=== PATIENT | female | born 1940 | race Two or more races ===

== ENCOUNTER 2019-01-24 16:32 | Emergency (ER) | payer OTHER ==
[~2019-01-24] VITALS: Ht 152.4 cm; Wt 40.4 kg
[~2019-01-24 16:32] MED LIST: PLAVIX75 MG; ZETIA10 MG
== END 2019-01-24 20:18 | disposition home or self-care (01) ==
LOC: ER 16:32
DX: K62.5 Hemorrhage of anus and rectum (principal)

== ENCOUNTER 2022-02-19 11:08 | Emergency (ER) | payer OTHER ==
[~2022-02-19] VITALS: Ht 149.9 cm; Wt 39.9 kg
[2022-02-19] MEDS ORDERED: CRESTOR5 MG PO (11:23)
[2022-02-19] MEDS ORDERED: KETO10TA2 PO (12:12)
== END 2022-02-19 12:23 | disposition home or self-care (01) ==
LOC: ER 11:08
DX: S30.0XXA Contusion of lower back and pelvis, initial encounter (principal); W18.30XA Fall on same level, unspecified, initial encounter; Y93.89 Activity, other specified; Y92.22 Religious institution as the place of occurrence of the external cause; Y99.9 Unspecified external cause status

== ENCOUNTER 2024-02-28 15:56 | Emergency (ER) | payer OTHER ==
[~2024-02-28] VITALS: Ht 160 cm; Wt 37.6 kg
[~2024-02-28 15:56] MED LIST changes: +CRESTOR5 MG PO; +KETO10TA2 PO
[2024-02-28] MEDS ORDERED: COZAAR25 MG PO (16:11)
[2024-02-28] MEDS ORDERED: 0.9 % SODIUM CHLORIDE 500 ML IV ONE (17:45)
[2024-02-28] MEDS ORDERED: FAMOTIDINE/PF 20 MG/2 ML VIAL IV ONE (17:45)
[2024-02-28] MEDS ORDERED: LACTOBACILLUS ACIDOPHILUS 1 CAP CAP PO ONE ×2 (17:45→17:51)
[2024-02-28] MEDS ORDERED: FAMOTIDINE/PF 20 MG/2 ML VIAL ONE (17:51)
[2024-02-28 18:25] LABS: HEMATOCRIT 34.6 % (36.0-45.00); HEMOGLOBIN 12.3 g/dL (12.0-15.00); MEAN CORPUSCULAR HEMOGLOBIN 30.2 pg (27.00-32.0); MEAN CORPUSCULAR HGB CONC 35.5 g/dl (32.0-36.0); PLATELET COUNT 250 K/uL (150-450); RED BLOOD COUNT 4.07 M/uL (4.00-6.00); RED CELL DISTRIBUTION WIDTH 14.2 % (11.5-14.5)
[2024-02-28 18:43] LABS: ALBUMIN 4.1 gm/dL (3.4-5.0); BILIRUBIN TOTAL 0.41 mg/dL (0.3-1.2); CALCIUM 9.7 mg/dL (8.5-10.1); CREATININE SERUM 0.66 mg/dL (0.55-1.02); GFR 85.74; POTASSIUM 4.47 mEq/L (3.5-5.1); TOTAL PROTEIN 8.1 gm/dL (6.4-8.2)
[2024-02-28 19:19] LABS: URINE APPEARANCE Clear; URINE BILIRRUBIN Negative (NEGATIVE); URINE BLOOD Negative; URINE COLOR Yellow; URINE GLUCOSE Negative (NEGATIVE); URINE KETONE Trace (NEGATIVE); URINE LEUKOCYTE Negative; URINE NITRATE Negative; URINE PROTEIN Negative (NEGATIVE); URINE UROBILINOGEN 0.2 E.U./dl
[2024-02-28 19:22] LABS: URINE RBC 21.8 uL (0.0-20.8); URINE WBC 2.4 uL (0.0-23.2)
[2024-02-28 19:26] LABS: URINE EPITHELIAL CELLS 0.6 uL (0.0-38.8)
[2024-02-28] MEDS ORDERED: INTESTINEX680 M1 PO (23:19)
== END 2024-02-28 23:45 ==
LOC: ER 15:58
PROVIDERS: Nurse Practitioner Family
DX: A08.4 Viral intestinal infection, unspecified (principal); I11.9 Hypertensive heart disease without heart failure; E78.49 Other hyperlipidemia; Z98.890 Other specified postprocedural states; K57.30 Diverticulosis of large intestine without perforation or abscess without bleeding
CPT/HCPCS: 36415; 74177; 96365; 96366; 99284; J3490; Q9965